=== PATIENT | female | born 1980 | race Caucasian/White ===

== ENCOUNTER 2025-07-23 16:00 | Emergency (ER) | payer MEDICAID ==
[~2025-07-23] VITALS: Ht 165.1 cm; Wt 56.0 kg
[2025-07-23 16:06] VITALS: TEMP 36.6; O2SAT 98
[2025-07-23] MEDS ORDERED: IBUP-1455 MT (18:42)
[2025-07-23 19:06] VITALS: BP 136/84; PULSE 78; RESP 16; O2SAT 100
== END 2025-07-23 19:17 | disposition home or self-care (01) ==
LOC: ER 16:00
DX: S09.8XXA Other specified injuries of head, initial encounter (principal); G44.309 Post-traumatic headache, unspecified, not intractable; W18.2XXA Fall in (into) shower or empty bathtub, initial encounter; Y93.E1 Activity, personal bathing and showering; Y92.89 Other specified places as the place of occurrence of the external cause; Y99.8 Other external cause status
CPT/HCPCS: 81025; 99284